=== PATIENT | male | born 1945 | race Caucasian/White ===

== ENCOUNTER 2018-03-28 05:40 | Day surgery (SDC) | payer OTHER | END 2018-03-28 06:15 | disposition home or self-care (01) | LOC: D.OPS 05:40 | DX: Z53.9 Procedure and treatment not carried out, unspecified reason (principal) ==

== ENCOUNTER 2019-01-30 09:54 | Inpatient (IN) | payer MEDICAID ==
[~2019-01-30] VITALS: Ht 154.9 cm; Wt 55.8 kg
[2019-01-31] MEDS ORDERED: ZYLOPRIM300 MG PO (11:29)
[2019-01-31] MEDS ORDERED: ASPIRIN81 MG PO (11:29)
[2019-01-31] MEDS ORDERED: LEVOXYL25 MCG PO (11:30)
[2019-01-31] MEDS ORDERED: HYDROCHLOROTHIA25 MG PO (11:30)
[2019-01-31] MEDS ORDERED: IMODIUM2 MG PO (11:30)
[2019-01-31] MEDS ORDERED: QVAR REDIHALE10.6 G1 INH (11:31)
[2019-01-31] MEDS ORDERED: ZOCOR20 MG PO (11:31)
[2019-01-31] MEDS ORDERED: OXYBUTYNIN CHLOR5 MG PO (11:31)
[2019-01-31] MEDS ORDERED: XOPENEX HFA15 GM INH (11:31)
[2019-01-31 11:43] VITALS: BP 161/98; Ht 154.9 cm; Wt 55.8 kg
[2019-01-31 11:49] LABS: HEMOGLOBIN 17.2 g/dL (13.5-17.5); MCH 32.3 pg (26.0-34.0); MCHC 34.4 g/dL (31.0-37.0); MEAN PLATELET VOLUME 9.9 fL (7.4-10.4); RBC 5.32 10x6/uL (4.20-6.10); WBC 15.3 10x3/uL (4.8-10.8)
[2019-01-31 11:54] LABS: CREATININE - SERUM 1.6 mg/dL (0.6-1.3)
--- NOTE | 2019-01-31 15:40 | NUR ---
BLOOD ON RETURN W/CATHETER PLACEMENT PER D.N.. PROCESS STOPPED, DR. FROST CALLED, CATHETER ATTEMPTED AND FAILED. DR. PHOENIX CALLED. CYSTO PERFORMED WITH CATHETER PLACEMENT.
--- NOTE | 2019-01-31 17:02 | NUR ---
1645: PATIENT 5 LEAD ECG LEAD II PRESENTS WITH SUDDEN ONSET BIGEMENY.
--- NOTE | 2019-01-31 17:04 | NUR ---
1654 SAO2 SLOWLY DECREASING, PATIENT SHOWING INADEQUATE BREATHING, REVERSED WITH SUGAMMADEX 200MG ivp.
--- NOTE | 2019-01-31 17:06 | NUR ---
1656 PATIENT RESPONDING TO REVERSAL, DEEP EVEN RESPIRATIONS, SAO2 INCREASING. ECG SHOWING SMALL RUNS OF SVT, WITH MULTIFOCAL PVCS, PACs, TO SINUS RHYTHM. PATIENT AWAKE AND RESPONDING.
--- NOTE | 2019-01-31 17:10 | OP ---
PATIENT NAME: JEY CARVAJAL MEDICAL RECORD: [id number] :47 LOCATION:[facility]- ADMISSION DATE:01/31/19 SURGEON: OMAR PHOENIX MD DATE OF OPERATION: 01/31/2019 SURGEON: Omar Phoenix MD ANESTHESIA: General anesthesia. 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 PROCEDURES: Cystoscopy, insertion of a Hickman catheter over a guidewire. FINDINGS: Irregular prostatic urethra from previous radiation. BLOOD LOSS: None. CLINICAL HISTORY: This is a 74-year-old male, who is on the operating table for surgery by Dr. Wu. He has a previous history of prostate cancer treated with radiation. 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 Dr. Wu will be giving him a colostomy. The OR nurse was unable to get a Hickman catheter inserted. The patient has had radiation for prostate cancer as I mentioned. I will try to get a catheter inserted over a guidewire. DESCRIPTION OF PROCEDURE: The patient was in supine position with general anesthesia had been given. He has preoperative antibiotics given to him. His legs were placed in lithotomy position. He was then prepped and draped. A 21-Albanian cystoscope with 30-degree lens was used for visualization. There are no strictures per se, but the prostatic urethra is irregular due to his radiation. I managed to get into the bladder. The bladder neck is somewhat elevated also. A Sensor wire was placed into the bladder through the cystoscope. The scope was then removed, leaving the wire in place. A 16-[place]ian [place] tip Hickman catheter was then inserted over the wire. Once the catheter was in the bladder, the balloon was inflated with 10 cc of sterile water. The wire was then removed entirely. The catheter was put to bag drainage. Dr. Wu will now proceed with the surgery. TRANSINT:[id number] Voice Confirmation ID: [id number] DOCUMENT ID: [id number] OMAR PHOENIX MD at 1710 CC: [id number] DICTATION DATE: 01/31/19 1511 MAP AND CHART MOUNTER: 01/31/19 1535 ADM IN [id number] [place] [address]
--- NOTE | 2019-01-31 17:16 | NUR ---
DR WELLER NOTIFIED OF CARDIAC ARRYTHMIAS EXPERIENCED BY PATIENT. 12 LEAD ECG OBTAINED. ORDERS RECEIVED FOR LIDOCAINE 100MG
--- NOTE | 2019-01-31 18:43 | NUR ---
1755 PT ARRIVED TO ROOM FROM PACU AND C/O PAIN TO ABDOMEN. COLOSTOMY BAG IN PLACE WITH CLAMP INTACT. STOMA NOTED. JAVIER TO GRAVITY WITH RODNEY COLORED URINE CLEAR NO CLOTS NOTED. ON 3 LITES NC. PT NOT COLD AND NO NAUSEA NOTED. ABLE TO TAKE A FEW BITES OF JELLO AND PT MEDICATED PO FOR PAIN.NICOLA IN ATTENDANCE, COPIES OF SUMMARY AND OP NOTE AND HISTORY WITH DISC OF CXR AND RX IN FOLDER. 182 PT WEANED TO 2LITES NC. MILD ELEVATED B/P. PT DROWSEY BUT EASY TO ARROUSE. 1839 PT ON RA AND O2 SATS 89%. PT BACK ON 2 LITES.NC. ABDOMEN SOFT AND JAVIER TAPED WELL IN PLACE. PT INSTRUCTED NOT TO PULL ON JAVIER AND PT STATED HE WOULD NOT
--- NOTE | 2019-01-31 19:13 | NUR ---
URINARY OUT PUT 425 IN PHASE 2. URINE LIGHT PINK IN COLOR
--- NOTE | 2019-01-31 19:48 | NUR ---
1949 IV REMOVED AND PRESSURE HELD
--- NOTE | 2019-01-31 19:55 | NUR ---
1954 REPORT GIVEN TO PAMELA PRINCE AT THE SHELTER. ASSISTED PT WITH GETTING DRESSED.
--- NOTE | 2019-01-31 20:14 | NUR ---
2015 DR FROST CALLED AND NOTIFIED THAT PT NEEDS O2 2LITERS TO MAINTAIN SATS. ORDERS GIVEN AND PT WILL BE TRANSPORTED ON O2 2LITES TO FACILITY
--- NOTE | 2019-01-31 20:30 | NUR ---
2030 PT LYING ON THE RIGHT SIDE AND PAIN HAS SUBSIDED. WAITING ON TRASNPORT. PT DRESSED AND ON 2 LITERS NC.
--- NOTE | 2019-01-31 21:20 | NUR ---
1939 arturo called for transport to outpatient
--- NOTE | 2019-01-31 22:04 | NUR ---
2200 PT ASSESSED PAIN LEVEL AND STATED IT WAS A 10/10. PT WAS ASLEEP. MEDICATED FOR PAIN PO. WAITING FOR TRANSPORT
--- NOTE | 2019-02-01 18:23 | OP ---
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 PROCEDURE: Laparoscopic end sigmoid colostomy. SURGEON: Kenneth Frost MD CLERK CHECKER: None. BLOOD LOSS: 50 cc. ANESTHESIA: General. COMPLICATIONS: None. The risks, possible complications and alternatives to the procedure were explained to the patient. He elects to proceed. The discussion specifically included, but was not limited to, bleeding requiring emergency reoperation, infection, intestinal injury, possible need for revisionary procedure in the future. OPERATIVE COURSE: The patient was conveyed the operating room electively on 01/31/2019. General anesthesia was induced by the anesthesia staff. The abdomen was sterilely prepped and draped. A small skin earnest was accomplished in the left upper quadrant. Veress needle was inserted through the skin earnest into the peritoneal cavity. CO2 insufflation was begun. Once a sufficient pneumoperitoneum had been achieved, a 5-mm trocar was inserted through an incision in the epigastrium. Under direct internal vision utilizing a television camera, a 12-mm trocar was inserted through an incision at the umbilicus. Another 5-mm trocar was inserted through an incision in the suprapubic area. During insertion of the Veress needle and all trocars, there appeared to have been no injury to the bowels, any intraperitoneal or retroperitoneal structures. An abdominal survey was undertaken. There were some adhesions in the left lower quadrant from the sigmoid colon to the sidewall, likely from prior bouts of acute diverticulitis. I incised along the left white line of Toldt. I folded the left colon medially. Some retroperitoneal dissection was performed. There was no damage to the ureter or to the iliac vessels. I advanced an Endo-BRADLEY type stapler and fired across the proximal sigmoid colon with a blue load. I then fired across the mesocolon with a white load. I then scored the staple line, indicating the proximal colon at the division of the colon. The 12-mm trocar was removed. The Ramez-Liat suture closure OPERATIVE REPORT [id number] JEY CARVAJAL and 0-Vicryl sutures were used to close the umbilical fascia defect. All the trocars were removed. The abdomen desufflated. The skin at the umbilicus was closed with interrupted 4-0 Vicryl Rapide sutures. The other trocar sites were closed with interrupted intracuticular 3-0 Vicryls. Attention was then turned to the formation of the colostomy. A circular incision was accomplished in the left lower quadrant, care home between the umbilicus and the anterior superior iliac spine. I dissected down to the anterior fascia. This was scored along the direction of the external oblique fibers. I then bluntly dissected down through the musculature, which appeared to be the rectus muscles. I identified the posterior sheath, which was then incised as well. I was able to deliver the proximal portion of the colon, which had been marked. This was delivered out through the abdominal wall defect. I then excised the staple line as well as a portion of redundant colon. I then created a Erin type of colostomy, which is an everting colostomy. This was performed in 4 quadrants at the colostomy site with 3-0 Vicryl sutures. I then sutured the rest of the full-thickness colon to the surrounding subdermis with interrupted 3-0 Vicryls, thus completing the maturation of the colostomy. A stomal appliance was then applied. At the trocar sites Dermabond was applied. The patient was then extubated and conveyed to post-anesthesia care unit where he was in stable condition. From my standpoint, he can be dismissed back to the longterm today. He is inpatient appropriate with regard to his procedure; however, he is doing so well postoperatively that he can be transferred back to the longterm [facility]. Dr. Reyes did have to perform a cystoscopy on him in order to insert a Hickman catheter. For that reason, we have left the Hickman catheter in place and attached to a bag. My advice would be to leave the Hickman catheter in for about 2 days and then remove it and he should be able to void normally. TRANSINT:[id number] Voice Confirmation ID: [id number] DOCUMENT ID: [id number] CC: Dr. Sukhdev Rodriguez, Dr. Stewart FROST, KENNETH WANG at 1823 CC: DYLAN RUFF MD, Dr. Stewart Rosales and KALI HOUSTON [id number] DICTATION DATE: 01/31/19 165 QUARRY MANAGER: 01/31/19 2351 DIS IN 01/31/19 [facility] [address] [place] [address]
--- NOTE | 2019-02-01 18:23 | DS ---
PATIENT:JEY CARVAJAL :49 MEDICAL RECORD: [id number] DISCHARGE SUMMARY ADMISSION DATE: 01/31/19 DISCHARGE DATE: 01/31/19 PRINCIPAL DIAGNOSES: 1. Chronic frequent incontinence due to no anal sphincter tone. 2. History of hypertension. 3. History of prostate cancer. 4. History of dyslipidemia. 5. History of gout. 6. History of hypothyroidism, on replacement therapy. PROCEDURE: Laparoscopic sigmoid colostomy. HISTORY AND HOSPITAL COURSE: The patient states that he has had complete fecal incontinence since undergoing radiation therapy for prostate cancer. Indeed, when I met the patient. He has no anal sphincter tone. He constantly soils himself and I have recommended a permanent diverting colostomy. This was performed. The patient is inpatient appropriate; however, he did so well after surgery that he was actually dismissed back to the long term the same day. He comes from the [facility], but will be going back to the [facility] for a day. I spoke to Dr. Kali Gonzalez to do the doc-to-doc transfer. I told the patient that despite this complete total diversion at the sigmoid colon that he will still have an occasional slimy bowel movement. This is due to a sloughing of the distal colon and rectal mucosa, which will form a small slimy bowel movement that will likely be expelled every 3 to 4 months and this is not anything to be alarmed about. TRANSINT:[id number] Voice Confirmation ID: [id number] DOCUMENT ID: [id number] CC: Dr. Archie Rodriguez KENNETH FROST MD at 1823 CC: DYLAN RUFF MD, ARCHIE ARENAS MD and KALI GONZALEZ [id number] DICTATION DATE: 01/31/19 1632 [employer] F[employer] MANAGER: 02/01/19 0720 DIS IN 01/31/19 [facility] [address] [id number]
== END 2019-01-31 22:35 | DRG 331 ==
LOC: D.SDCHOLD 01-31 10:30
PROVIDERS: Anesthesiology; ADMIT Surgery; ATTEND Surgery
PROC: 0D1N4Z4 Bypass Sigmoid Colon to Cutaneous, Percutaneous Endoscopic Approach (ICD-10-PCS; principal; 2019-01-31 11:00)
PROC: 0T9B80Z Drainage of Bladder with Drainage Device, Via Natural or Artificial Opening Endoscopic (ICD-10-PCS; 2019-01-31 11:00)
DX: K62.7 Radiation proctitis (principal); R15.9 Full incontinence of feces; E03.9 Hypothyroidism, unspecified; E78.5 Hyperlipidemia, unspecified; I10 Essential (primary) hypertension; N42.9 Disorder of prostate, unspecified; Z85.46 Personal history of malignant neoplasm of prostate